=== PATIENT | female | born 1975 | race Caucasian/White ===

== ENCOUNTER → 2018-03-13 08:39 | Outpatient (CLI) | payer BC, SELFPAY ==
--- NOTE | 2018-03-13 08:43 | MM_ITS ---
MM Dig screening mamm BI w/CAD CAD Screening COMPARISON: Digital mammograms 03/11/2017 and 01/19/2016 INDICATION: There is no personal or family history of breast cancer TECHNIQUE: Standard CC and MLO images were obtained. R2 CAD reviewed. FINDINGS: Moderate diffuse fibroglandular densities are seen in both breasts. Again noted is a mole marker right breast. There is no suspicious lesion and no suspicious microcalcifications. There are couple benign-appearing calcifications left breast. IMPRESSION: Stable exam no suspicious lesion seen BI-RADS Category: 2 Benign Finding(s) RECOMMENDED FOLLOW-UP: 1YR - 1 YEAR FOLLOW-UP (A letter has been sent to the patient regarding results of the study.)
== END ==
PROVIDERS: Family Provider Family Medicine; PCP Family Medicine; Visit Provider Nurse Practitioner Obstetrics & Gynecology
DX: Z12.31 Encounter for screening mammogram for malignant neoplasm of breast (principal)
CPT/HCPCS: 77067

== ENCOUNTER → 2018-04-18 09:42 | Outpatient (CLI) | payer BC, SELFPAY ==
[2018-04-18 11:34] LABS: Free Thyroxine Index 3.3 ug/dL (5.93-13.13); T4 (Thyroxine) 10.7 ug/dl (4.7-13.3); Thyroid Stimulating Hormone 2.35 uIU/ml (0.358-3.740); Triiodothryronine (T3) Uptake 31 % (31-39)
[2018-04-19 07:44] LABS: Triiodothyronine (T3) Free 3.3 pg/mL (2.0-4.4)
[2018-04-20 21:13] LABS: Estradiol <5.0 pg/mL (.); FSH 40.4 mIU/mL (.); LH 21.7 mIU/mL (.)
[2018-04-20 21:16] LABS: Testosterone,Free 2.1 pg/mL (0.0-4.2)
[2018-04-25 15:54] LABS: Testosterone, Total, LC/MS 16.7 ng/dL (.)
== END ==
PROVIDERS: Family Provider Family Medicine; PCP Family Medicine; Visit Provider Nurse Practitioner Obstetrics & Gynecology
DX: R53.83 Other fatigue (principal); R63.5 Abnormal weight gain; E03.9 Hypothyroidism, unspecified
CPT/HCPCS: 36415; 82670; 83001; 83002; 84402; 84436; 84443; 84479; 84481

== ENCOUNTER → 2018-08-08 07:47 | Outpatient (CLI) | payer BC, SELFPAY ==
--- NOTE | 2018-08-08 07:57 | CA_ITS ---
PROCEDURE: 2-D M-mode and color Doppler study INDICATIONS FOR THE TEST: Chest pain COPD Heart Murmur+ Tobacco Smoking Palpitations Fatigue Syncope Edema Hypertension Diabetes Mellitus Rheumatic Fever SOB COTTER Obesity Hyperlipidemia+ Family History HD Additional History PATIENT INFORMATION HEIGHT: 68 WEIGHT:235 GENDER: Female B/P:130/94 2-D/M-MODE INTERPRETATION: 2-D MEASUREMENTS OBSERVED VALUES IN CMS Right Ventricular Dimension (RVDd) 2.3 Interventricular Septum (Thickness)(IVsd) 1.2 Left Ventricular Internal Dimensions(LVIDd) 5.1 Left Ventricular Posterior Wall (Thickness)(LVPWd) 0.8 Aortic Root 2.7 Aortic Cusp Separation 1.7 Left Atrial Dimensions (LAD) 4.1 2D 1. Left atrium is mildly enlarged, left ventricle is normal size, mild concentric left ventricular hypertrophy, visually estimated ejection fraction 55% with no obvious regional wall motion abnormality. 2. The right atrium and right ventricle are mildly enlarged with normal contractility. 3. The aortic valve is minimally thickened and fibrosed. 4. The mitral and tricuspid valve leaflets are minimally thickened. 5. The pulmonic valve is poorly visualized. 6. No significant pericardial effusion noted. DOPPLER INTERROGATION: Doppler interrogation of the aortic, mitral and tricuspid valvular presence of mild mitral and tricuspid regurgitation, tricuspid regurgitation jet velocity is insufficient for calculation of the right ventricular systolic pressure, grade 1 diastolic dysfunction seen with tissue Doppler evidence of raised left atrial pressure. CONCLUSION: 1. Mildly enlarged left atrium, normal left ventricular size, mild concentric left ventricular hypertrophy, visually estimated ejection fraction 55% with no obvious regional wall motion abnormality, grade 1 diastolic dysfunction seen with tissue Doppler evidence of raised left atrial pressure. 2. Mild mitral and tricuspid regurgitation 3. No significant pericardial effusion noted.
== END ==
PROVIDERS: Family Provider Family Medicine; PCP Family Medicine; Visit Provider Nurse Practitioner Family
DX: R01.1 Cardiac murmur, unspecified (principal)
CPT/HCPCS: 93306

== ENCOUNTER → 2021-06-17 10:06 | Outpatient (CLI) | payer BC, SELFPAY ==
--- NOTE | 2021-06-17 10:12 | MM_ITS ---
PROCEDURE INFORMATION: Exam: MG Screening 3D Mammography Exam date and time: 06/17/2021 10:12 AM Age: 46 years old Clinical indication: Encounter for screening mammogram for malignant neoplasm of breast TECHNIQUE: Imaging protocol: Screening tomosynthesis and 2D mammography including computer-aided detection (CAD) when performed. COMPARISON: 1. MG [facility] MM Dig screening mamm BI w/CAD 03/13/2018 9:02 AM 2. MG [facility] DIG MAMM-SCREEN JUAN W/CAD 03/11/2017 3:42 PM 3. MG DMSB DIG MAMM-SCREEN JUAN 01/19/2016 4:13 PM FINDINGS: MAMMOGRAPHY: Breast composition: The breasts are heterogeneously dense, which may obscure small masses. Mass: No new suspicious masses. Architectural distortion: No suspicious distortion. Calcifications: No suspicious calcifications. Asymmetric density: None. Skin thickening: None. Axillary adenopathy: None. IMPRESSION: No mammographic evidence of malignancy. Annual screening is recommended unless otherwise clinically indicated. ASSESSMENT: BI-RADS Category 1: Negative
== END ==
PROVIDERS: PCP Family Medicine; Visit Provider Physician Assistant
DX: Z12.31 Encounter for screening mammogram for malignant neoplasm of breast (principal)
CPT/HCPCS: 77063; 77067

== ENCOUNTER → 2023-03-08 08:12 | Outpatient (POV) | payer BC, SELFPAY | PROVIDERS: Visit Provider Dermatology | DX: Z00.00 Encounter for general adult medical examination without abnormal findings (principal) ==

== ENCOUNTER 2023-12-12 09:42 | Outpatient (CLI) | payer BC, SELFPAY ==
[2023-12-12 11:26] LABS: Chloride 105 mmol/L (98-107); Potassium 4.4 mmoL/L (3.5-5.1); Sodium 142 mmol/L (136-145)
[2023-12-12 11:29] LABS: Alanine Aminotransferase 37 U/L (12-78); Albumin Level 4.8 g/dl (3.5-5.0); Albumin/Globulin Ratio 2.3 (1.1-1.8); Alkaline Phosphatase 69 U/L (38-126); Anion Gap 14.4 mEq/L (5-15); Aspartate Amino Transferase 29 U/L (14-36); Bilirubin,Total 0.6 mg/dl (0.2-1.3); Blood Urea Nitrogen 16 mg/dl (7-17); Carbon Dioxide 27 mmol/L (22.0-30.0); Cholesterol 190 mg/dl (140-200); Estimated Glomerular Filt Rate 67 ml/min (>60); GFR (African American) 81 ML/MIN (>60); Globulin 2.1 g/dL (1.3-3.2); Total Protein,Serum 6.9 g/dl (6.3-8.2); Triglycerides 225 mg/dl (30-150); VLDL Cholesterol 45 mg/dL (0-40)
[2023-12-12 11:30] LABS: Calcium 9.1 mg/dl (8.4-10.2); Chol/HDL Ratio 4.1 (1-3.5); Glucose 116 mg/dl (74-100); HDL Cholesterol 46 mg/dl (40-60)
[2023-12-12 11:40] LABS: Direct LDL Cholesterol 100.87 mg/dL (100-129)
== END 2023-12-12 23:59 ==
LOC: LAB 09:43
PROVIDERS: PCP Family Medicine; Visit Provider Family Medicine
DX: I10 Essential (primary) hypertension (principal); E78.5 Hyperlipidemia, unspecified
CPT/HCPCS: 36415; 80053; 80061